=== PATIENT | female | born 1955 | race Asian ===

== ENCOUNTER 2022-06-10 21:06 | Emergency (ER) | payer MEDICARE ==
[2022-06-10 22:34] LABS: CORONAVIRUS 229E-RESP PCR NOT DETECTED; CORONAVIRUS HKU1-RESP PCR NOT DETECTED; CORONAVIRUS NL63-RESP PCR NOT DETECTED
[2022-06-10 22:35] LABS: B. PARAPERTUSSIS- RESP PCR PAN NOT DETECTED; B. PERTUSSIS- RESP PCR PANEL NOT DETECTED; C. PNEUMONIAE- RESP PCR PANEL NOT DETECTED; CORONAVIRUS OC43-RESP PCR NOT DETECTED; HUMAN METAPNEUMOVIRUS NOT DETECTED; INFLUENZA A- RESP PCR PANEL NOT DETECTED; INFLUENZA B - RESP PCR PANEL NOT DETECTED; M. PNEUMONIAE- RESP PCR PANEL NOT DETECTED; PARAINFLUENZA VIRUS 1 NOT DETECTED; PARAINFLUENZA VIRUS 2 NOT DETECTED; PARAINFLUENZA VIRUS 3 NOT DETECTED; PARAINFLUENZA VIRUS 4 NOT DETECTED; RHINOVIRUS/ENTEROVIRUS NOT DETECTED; RSV- RESP PCR PANEL DETECTED; SARS-CoV-2 -RESP PCR PANEL NOT DETECTED
--- NOTE | 2022-06-10 23:07 | ED Physician Documentation ---
PD HPI URI - Stated complaint Stated Complaint: FEVER/COUGH/HEADACHE - Chief complaint Chief Complaint: General - History obtained from History obtained from: Patient, Family, Other (patient is Malaysian-speaking only, family at bedside is translating fluently) - History of Present Illness Timing - onset: How many days ago (10) Associated symptoms: Fever (Tmax 102), Dry cough, Dyspnea Contributing factors: Sick contact Improves by: Rest Worsened by: Activity Similar symptoms before: Has not had sx before - Additional information Additional information: c/o feeling unwell x 10 days. Fever Tmax 102, generalized headache, coughing (mostly nonproductive), dyspnea at times and worse with exertion. No pulmonary diagnoses such as COPD, asthma. She is COVID vaccinated. Household contact recently diagnosed with RSV Review of Systems Constitutional: reports: Fever, Chills, Myalgias, Fatigue, Sweats Throat: denies: Sore throat Cardiac: reports: Reviewed and negative Respiratory: reports: Dyspnea, Cough. denies: Hemoptysis, Wheezing GI: reports: Reviewed and negative Neurologic: reports: Headache PD PAST MEDICAL HISTORY - Past Medical History Past Medical History: Yes Cardiovascular: High cholesterol Musculoskeletal: Osteoporosis - Present Medications Home Medications: Ambulatory Orders Medication Instructions Recorded Confirmed Albuterol Sulf [Ventolin Hfa 1 - 2 puffs INH Q4HR PRN #1 each 06/11/22 Inhaler] Azithromycin 250 mg PO DAILY #4 tablet 06/11/22 - Allergies Allergies/Adverse Reactions: Allergies Allergy/AdvReac Type Severity Reaction Status Date / Time No Known Drug Allergies Allergy Verified 06/10/22 21:22 PD ED PE NORMAL - Vitals Vital signs reviewed: Yes - General General: Alert and oriented X 3, No acute distress, Well developed/nourished - HEENT HEENT: Moist mucous membranes, Pharynx benign - Neck Neck: Supple, no meningeal sign - Cardiac Cardiac: RRR, No murmur - Respiratory Respiratory: No respiratory distress PD ED PE EXPANDED - Respiratory Respiratory: Wheezing (bilateral expiratory wheezing), Rhonchi (left mid/lower lung combs) Results - Vitals Vitals: Oxygen O2 Source Room air - Labs Labs: Laboratory Tests 06/10/22 21:34 Nasal Adenovirus (PCR) NOT DETECTED Nasal B. parapertussis DNA (PCR) NOT DETECTED Nasal Coronavir 229E PCR NOT DETECTED Nasal Coronavir HKU1 PCR NOT DETECTED Nasal Coronavir NL63 PCR NOT DETECTED Nasal Coronavir OC43 PCR NOT DETECTED Nasal Enterovir/Rhinovir PCR NOT DETECTED Nasal Influenza B PCR NOT DETECTED Nasal Influenza A PCR NOT DETECTED Nasal Parainfluen 1 PCR NOT DETECTED Nasal Parainfluen 2 PCR NOT DETECTED Nasal Parainfluen 3 PCR NOT DETECTED Nasal Parainfluen 4 PCR NOT DETECTED Nasal RSV (PCR) DETECTED A Nasal B.pertussis DNA PCR NOT DETECTED Nasal C.pneumoniae (PCR) NOT DETECTED Ousmane Human Metapneumo PCR NOT DETECTED Nasal M.pneumoniae (PCR) NOT DETECTED Nasal SARS-CoV-2 (PCR) NOT DETECTED - Rads (name of study) chest xray Radiology: Prelim report reviewed, See rad report PD MEDICAL DECISION MAKING - ED course Complexity details: reviewed results, re-evaluated patient, considered differential, d/w patient, d/w family ED course: tests positive for RSV on respiratory PCR panel. Wheezing on exam, given 10mg PO decadron and albuterol neb with much improvement (on reexam, lungs are CTA bilaterally). CXR s/o mild patchy BLL infiltrates in pattern consistent with atypical pneumonia. She is given/prescribed zithromax as well as prescribed albuterol MDI Departure - Departure Disposition: Home, Self Care Clinical Impression: RSV infection Condition: Good Instructions: ED RSV Bronchiolitis Prescriptions: Albuterol Sulf [Ventolin Hfa Inhaler] 1 - 2 puffs INH Q4HR PRN #1 each PRN Reason: Shortness Of Air/Wheezing Azithromycin 250 mg PO DAILY #4 tablet Comments: You tested positive for RSV. Although this mostly affects children, adults can also catch this viral infection. Your chest xray was concerning for a developing lung infection (pneumonia) at the bases of both lungs. It appears to be very early/mild. While antibiotics do not help with a viral infection such as RSV, sometimes a bacterial infection develops while the body is fighting a viral infection; for this reason, I am prescribing an antibiotic to cover possible bacterial pneumonia. Prescriptions for albuterol inhaler (for difficulty breathing, wheezing) and azithromycin (antibiotic) have been electronically submitted to [facility] pharmacy in [place] Discharge Date/Time: 06/11/22 00:33
[2022-06-10] MEDS ORDERED: ALBUTEROL NEB 2.5 MG/3 ML INH STA (23:22)
[2022-06-10] MEDS ORDERED: CHERRY SYRUP 10 ML UDC PO ONE (23:22)
[2022-06-10] MEDS ORDERED: DEXAMETHASONE 10 MG/ML VIAL PO STA (23:22)
--- NOTE | 2022-06-10 23:56 | XRAY Report ---
PROCEDURE: Chest 2 View X-Ray INDICATIONS: cough, dyspnea, wheezing and left rhonchi TECHNIQUE: 2 views of the chest were acquired. COMPARISON: None. FINDINGS: Surgical changes and devices: None. Lungs and pleura: There are patchy small indistinct opacities in the lung bases, left greater than r ight. No pleural effusions or pneumothorax. Mediastinum: Mediastinal contours are normal. Heart size is normal. Bones and chest wall: No suspicious bony abnormalities. Soft tissues appear unremarkable. IMPRESSION: 1. Patchy small indistinct opacities in the lung bases suggestive of atypical pneumonia. Reviewed by: Sriram Burnett MD on 06/10/2022 11:55 PM [facility] Approved by: Sriram Burnett MD on 06/10/2022 11:55 PM [facility] Station ID: [id number]
[2022-06-11 00:34] VITALS: BP 150/89
== END 2022-06-11 00:33 | disposition home or self-care (01) ==
LOC: ED 21:06
DX: J12.1 Respiratory syncytial virus pneumonia (principal)
CPT/HCPCS: 71046; 87633; 94640; 99284; A9270